=== PATIENT | male | born 1960 | race Caucasian/White ===

== ENCOUNTER → 2019-02-10 | Day surgery (SDC) | payer OTHER ==
[~2019-02-10] MED LIST: ASPIR 8181 MG PO; FENTANYL CITRATE/PF 100MCG/2 ML INJ ONE; HYOSCYAMINE 0.125 MG TAB ONE; IRBESARTAN-HCT1 EACH PO; LIDOCAINE HCL 2% LOCAL INJ 5 ML SDV VIAL INJ ONE; MIDAZOLAM HCL 2 MG/2 ML VIAL ONE; PROPOFOL IV EMULSION 10 MG/ML 50 ML VIAL ONE
[2019-02-10 13:35] VITALS: BP 110/72
--- NOTE | 2019-02-10 19:48 | Operative Report ---
DATE OF PROCEDURE: 02/10/2019 SURGEON: Ananda Palafox MD PROCEDURES: Colonoscopy with polypectomy. INDICATION FOR PROCEDURES: Colorectal cancer screening. MEDICATIONS: The patient was done under MAC, please see anesthesiologist's note. PROCEDURE IN DETAIL: With the patient in left lateral decubitus position, a flexible fiberoptic Olympus colonoscope was inserted into the rectum with ease and advanced all the way to the cecum. Mucosa overlying the cecum appeared to be within normal limits. There was some scattered diverticular disease noted pretty much throughout the colon with more prominent in the left colon. One polyp was snared from the ascending colon and site was hemoclipped. An additional polyp was snared from the transverse colon. The descending and sigmoid other than for diverticulosis appeared to be within normal limits. One polyp was hot biopsied and one polyp was cold biopsied from the rectum. The scope was then retroflexed into the distal rectum and small internal hemorrhoids were noted, none of which was actively bleeding. The scope was then straightened out, it was subsequently withdrawn, and the patient tolerated the procedure well. IMPRESSION: 1. Diverticulosis. 2. Ascending colon polyp, snared, site hemoclipped. 3. Transverse colon polyp, snared. 4. Rectal polyps x2, one hot biopsied and one cold biopsied. 5. Hypertrophied anal papilla. 6. Internal hemorrhoids, none actively bleeding. PLAN: Follow up histology. Initiate high-fiber, low-fat diet. Initiate high-fiber supplement. The patient might benefit from a followup colonoscopy in 3 to 5 years. Ananda Palafox MD [facility] [place][id number] cc: Jonathan Levy MD
== END | disposition home or self-care (01) ==
LOC: OR 08:27
PROVIDERS: ATTEND Internal Medicine Gastroenterology
DX: K64.8 Other hemorrhoids (principal); D12.2 Benign neoplasm of ascending colon; D12.3 Benign neoplasm of transverse colon; K63.5 Polyp of colon; K62.1 Rectal polyp; I10 Essential (primary) hypertension; Z87.11 Personal history of peptic ulcer disease; Z88.0 Allergy status to penicillin; Z91.018 Allergy to other foods; Z68.32 Body mass index [BMI] 32.0-32.9, adult; K57.30 Diverticulosis of large intestine without perforation or abscess without bleeding
CPT/HCPCS: 45384; 45385; 93005; J2001; J2250; J2704; J3010; 45378

== ENCOUNTER 2020-03-01 20:08 | Emergency (ER) | payer OTHER ==
[~2020-03-01] VITALS: Ht 180.3 cm; Wt 103.9 kg
[~2020-03-01 20:08] MED LIST changes: -FENTANYL CITRATE/PF 100MCG/2 ML INJ ONE; -HYOSCYAMINE 0.125 MG TAB ONE; -LIDOCAINE HCL 2% LOCAL INJ 5 ML SDV VIAL INJ ONE; -MIDAZOLAM HCL 2 MG/2 ML VIAL ONE; -PROPOFOL IV EMULSION 10 MG/ML 50 ML VIAL ONE
--- NOTE | 2020-03-01 21:38 | Emergency Department Note ---
History of Present Illnes History of Present Illness Chief Complaint: Laceration History of Present Illness This is a 59 year old male TO ED WITH APPROX 0.5CM LACERATION TO LEFT EAR CAUSED BY TREE BRANCH, PT DENIES LOC; EDGES WELL APPROXIMATED, NO ACTIVE BLEEDING NOTED . Historian: Patient Arrival Mode: Car Onset (how long ago): hour(s) (3) Location: left ear Quality: laceration Radiation: Reports non-radiation Severity: mild Onset quality: sudden Duration (how long): hour(s) (3) Timing of current episode: constant Progression: unchanged Chronicity: new Context: Reports trauma/injury (as above) Relieving factors: none Exacerbating factors: none Associated symptoms: Reports denies other symptoms Past Medical/Family History Physician Review I have reviewed the patient's past medical and family history. Any updates have been documented here. Past Medical History Recent Fever: No Clinical Suspicion of Infectio: No New/Unexplained Change in Ment: No Past Medical History: Hypertension Other Surgery: RIGHT SHOULDER Social History Smoking Cessation: Never Smoker Counseling Performed: No Alcohol Use: None Any Illegal Drug Use: No Family History Family history of heart diseas: No Other family history htn Other Any Pre-Existing Lines (PICC,: No Review of Systems Review of Systems Constitutional: Reports no symptoms EENTM: Reports no symptoms Cardiovascular: Reports no symptoms Respiratory: Reports no symptoms Gastrointestinal: Reports no symptoms Genitourinary: Reports no symptoms Musculoskeletal: Reports no symptoms Integumentary: Reports as per HPI Neurological: Reports no symptoms Psychological: Reports no symptoms Endocrine: Reports no symptoms Hematological/Lymphatic: Reports no symptoms Physical Exam Related Data Allergies: Coded Allergies: Penicillins (Verified Allergy, Unknown, UNKNOWN, 02/07/19) HAPPENED A CHILD Uncoded Allergies: LEAFY VEGETABLES (Adverse Reaction, Severe, HIVES, SHORTNESS OF BREATH, 02/07/19) Triage Vital Signs Vital Signs Date Time Temp Pulse Resp B/P (MAP) Pulse Ox O2 Delivery O2 Flow Rate FiO2 03/01/20 21:21 98.1 73 16 138/73 100 Room Air Vital signs reviewed: Yes Physical Exam CONSTITUTIONAL Constitutional: Present well-developed, Present well-nourished HENT HENT: Present normocephalic, Present atraumatic, Present oropharynx clear/moist, Present nose normal HENT L/R: Present right ext ear normal, Present other (0.5cm aproximated superficial laceration to inner lower auricle) EYES Eyes: Reports PERRL, Reports conjunctivae normal NECK Neck: Present ROM normal PULMONARY Pulmonary: Present effort normal, Present breath sounds normal CARDIOVASCULAR Cardiovascular: Present regular rhythm, Present heart sounds normal, Present capillary refill normal, Present normal rate GASTROINTESTINAL Abdominal: Present soft, Present nontender, Present bowel sounds normal GENITOURINARY Genitourinary: Present exam deferred SKIN Skin: Present warm, Present dry MUSCULOSKELETAL Musculoskeletal: Present ROM normal NEUROLOGICAL Neurological: Present alert, Present oriented x 3, Present no gross motor or sensory deficits PSYCHOLOGICAL Psychological: Present mood/affect normal, Present judgement normal Procedures Laceration Laceration: Laceration 1 Site: other (left ear) Size (cm): 0.5 Description: linear Depth: simple, single layer Amount of anesthesia (mL): 0 Pre-repair: wound exposed, irrigated extensively Skin layer closed with: other (dermabond) Size (cm): other (dermabond) Number of sutures: 0 Technique: other (dermabond) Assessment & Plan Medical Decision Making MDM pt with superficial laceration to inner lower auricle of left ear, edges approximated, no active bleeding, wound repaired with dermabond Assessment & Plan Final Impression: (1) Laceration of left ear Depart Disposition: HOME, SELF-CARE Last Vital Signs Date Time Temp Pulse Resp B/P (MAP) Pulse Ox O2 Delivery O2 Flow Rate FiO2 03/01/20 21:21 98.1 73 16 138/73 100 Room Air Home Meds Reported Medications Irbesartan/Hydrochlorothiazide (IRBESARTAN-HCTZ 150-12.5 MG TB) 1 Each Tablet, PO DAILY 02/09/19 Aspirin (ASPIR 81) 81 Mg Tablet.dr, 81 MG PO DAILY 02/07/19 ERNESTINA DAVILA MD Mar 01, 2020 21:38
== END 2020-03-01 21:28 | disposition home or self-care (01) ==
LOC: ER 20:38
DX: S01.312A Laceration without foreign body of left ear, initial encounter (principal); W22.8XXA Striking against or struck by other objects, initial encounter; Y93.H2 Activity, gardening and landscaping; Y92.007 Garden or yard of unspecified non-institutional (private) residence as the place of occurrence of the external cause; I10 Essential (primary) hypertension
CPT/HCPCS: 99283

== ENCOUNTER 2025-03-04 21:32 | Emergency (ER) | payer OTHER ==
[~2025-03-04] VITALS: Ht 180.3 cm; Wt 102.1 kg
[2025-03-04 22:06] VITALS: TEMP 98.8
[2025-03-04 22:55] LABS: BASOPHILS % 0.4 % (0.0-1.0); EOSINOPHILS % 0.4 % (0.0-6.0); LYMPHOCYTES % 12.7 % (18.0-39.1); MONOCYTES % 5.0 % (4.4-11.3); NEUTROPHILS % 81.1 % (38.7-80.0); RED CELL DISTRIBUTION WIDTH 12.7 % (11.7-14.4)
[2025-03-04 22:57] LABS: EPITHELIAL CELLS,URINE FEW /LPF; LEUKOCYTE ESTERASE ,URINE NEGATIVE (NEGATIVE); PROTEIN,URINE DIPSTICK NEGATIVE (NEGATIVE); URINE UROBILINOGEN 0.2 mg/dL (0.2 - 1)
[2025-03-04 23:17] LABS: EST GLOMERULAR FILTRATION RATE 97.0 ML/MIN (>=60)
[2025-03-05] MEDS ORDERED: ONDANSETRON ODT4 MG SL (00:12)
[2025-03-05] MEDS ORDERED: CEFDINIR300 MG PO (00:12)
[2025-03-05] MEDS: CEFDINIR 300 MG CAP PO ONE (00:25)
[2025-03-05] MEDS ORDERED: ONDANSETRON HCL INJ 2MG/ML 2ML 2 MG/ML VIAL ONE (00:26)
[2025-03-05] MEDS: ONDANSETRON HCL INJ 2MG/ML 2ML 2 MG/ML VIAL IV STA (00:31)
[2025-03-05 00:45] VITALS: PULSE 92; RESP 18
[2025-03-05 01:11] VITALS: BP 147/96; PULSE 92; RESP 18; O2SAT 97
== END 2025-03-05 01:10 | disposition home or self-care (01) ==
LOC: ER 21:48
DX: R11.0 Nausea (principal); N39.0 Urinary tract infection, site not specified; I10 Essential (primary) hypertension; Z85.820 Personal history of malignant melanoma of skin
CPT/HCPCS: 36415; 80053; 81001; 83690; 84484; 85025; 99284; J2405; J2470; 93005